=== PATIENT | female | born 1930 | race Caucasian/White ===

== ENCOUNTER 2016-10-29 12:46 | Emergency (ER) | payer MEDICARE, BC ==
--- NOTE | 2016-10-31 19:25 | ER ---
ADMIT: 10/29/2016 RM/LOC: ER [facility] MR#: [id number] [address] [address] [address] [place] [address] Emergency Room Report SEX: F AGE: 85 : 1930 DATE: 10/29/2016 ADDENDUM: CHIEF COMPLAINT: Right underarm pain. HISTORY OF PRESENT ILLNESS: This 85-year-old who had a lumpectomy from her right breast just a week ago. She really has had no pain. She was sent home with tramadol and said she only had to take it twice. Just this morning, she said she was having some chills and some right arm pain, just proximal. There is no rash. There is no erythema. There is no swelling. She is afebrile. I did check a CBC, this is normal with a white count of 5.6. I am sending her home with Keflex just more preventative, if there is an infection that I cannot see, having her followup with her primary care physician. Return to the ER if she develops any kind of fever. I did give her warning signs that this could be early shingles that we just cannot see it yet, so to watch for rash. CLINICAL IMPRESSION: Status post right breast lumpectomy with right arm pain. ERNA Barber / Aly Zapata MD / barbiel JOB #: [id number] CC: Aly Zapata MD, Attending Physician Dima Keller MD, Family Physician
[2017-01-13] MEDS ORDERED: SYNTHROID25 MCG PO (10:29)
[2017-01-13] MEDS ORDERED: POTASSIUM CHLO10 MEQ PO (10:29)
[2017-01-13] MEDS ORDERED: AMIODARONE HCL200 MG PO (10:29)
[2017-01-13] MEDS ORDERED: LASIX DPS80 MG PO (10:30)
[2017-01-13] MEDS ORDERED: VITAMIN D50000 UNIT PO (10:30)
[2017-01-13] MEDS ORDERED: PRILOSEC DPS20 MG PO (10:31)
[2017-01-13] MEDS ORDERED: XARELTO20 MG PO (10:31)
[2017-01-13] MEDS ORDERED: ASPIR 8181 MG PO (10:31)
[2017-01-13] MEDS ORDERED: CRESTOR10 MG PO (10:32)
[2017-01-13] MEDS ORDERED: DETROL LA DPS4 MG PO (10:32)
[2017-01-13] MEDS ORDERED: TESSALON PERLE100 M1 PO (10:32)
[2017-01-13] MEDS ORDERED: ZOFRAN4 MG PO (10:32)
[2017-01-13] MEDS ORDERED: LOPRESSOR DPS100 MG PO (10:32)
[2017-01-13] MEDS ORDERED: ULTRAM DPS50 MG PO (10:33)
[2017-01-13] MEDS ORDERED: NITROSTAT0.4 MG SL (10:33)
== END 2016-10-29 14:30 | disposition home or self-care (01) ==
LOC: ER 12:46
DX: G89.18 Other acute postprocedural pain (principal); M79.601 Pain in right arm; I10 Essential (primary) hypertension; E03.9 Hypothyroidism, unspecified; Z87.891 Personal history of nicotine dependence; Z91.040 Latex allergy status; Z79.82 Long term (current) use of aspirin; Z79.899 Other long term (current) drug therapy

== ENCOUNTER → 2016-12-14 | Outpatient (CLI) | payer MEDICARE, BC ==
[~2016-12-14] MED LIST: AMIODARONE HCL200 MG PO; ASPIR 8181 MG PO; CRESTOR10 MG PO; DETROL LA DPS4 MG PO; LASIX DPS80 MG PO; LOPRESSOR DPS100 MG PO; NITROSTAT0.4 MG SL; POTASSIUM CHLO10 MEQ PO; PRILOSEC DPS20 MG PO; SYNTHROID25 MCG PO; TESSALON PERLE100 M1 PO; ULTRAM DPS50 MG PO; VITAMIN D50000 UNIT PO; XARELTO20 MG PO; ZOFRAN4 MG PO
== END | disposition home or self-care (01) ==
LOC: RAD.S 10:11
DX: C50.411 Malignant neoplasm of upper-outer quadrant of right female breast (principal)

== ENCOUNTER 2017-01-10 22:29 | Observation (INO) | payer MEDICARE, BC ==
[~2017-01-10] VITALS: Ht 170.2 cm; Wt 75.0 kg
[2017-01-13] MEDS ORDERED: POTASSIUM CHLO10 MEQ PO (10:29)
[2017-01-13] MEDS ORDERED: SYNTHROID25 MCG PO (10:29)
[2017-01-13] MEDS ORDERED: AMIODARONE HCL200 MG PO (10:29)
[2017-01-13] MEDS ORDERED: LASIX DPS80 MG PO (10:30)
[2017-01-13] MEDS ORDERED: VITAMIN D50000 UNIT PO (10:30)
[2017-01-13] MEDS ORDERED: PRILOSEC DPS20 MG PO (10:31)
[2017-01-13] MEDS ORDERED: XARELTO20 MG PO (10:31)
[2017-01-13] MEDS ORDERED: ASPIR 8181 MG PO (10:31)
[2017-01-13] MEDS ORDERED: LOPRESSOR DPS100 MG PO (10:32)
[2017-01-13] MEDS ORDERED: TESSALON PERLE100 M1 PO (10:32)
[2017-01-13] MEDS ORDERED: CRESTOR10 MG PO (10:32)
[2017-01-13] MEDS ORDERED: DETROL LA DPS4 MG PO (10:32)
[2017-01-13] MEDS ORDERED: ZOFRAN4 MG PO (10:32)
[2017-01-13] MEDS ORDERED: NITROSTAT0.4 MG SL (10:33)
[2017-01-13] MEDS ORDERED: ULTRAM DPS50 MG PO (10:33)
--- NOTE | 2017-01-14 12:00 | HP ---
ADMIT: 01/11/2017 RM/LOC: 531 [facility] MR#: [id number] [facility]#: [id number] [address] [address] [address] [place] [address] History and Physical SEX: F AGE: 86 : 1930 DATE OF SERVICE: CHIEF COMPLAINT: Fall, pain. HISTORY OF PRESENT ILLNESS: The patient is a very pleasant, 86-year-old female, known to me from clinic, who last night in the middle of the night as she was heading to bed, going upstairs. She was carrying 3 large bags in 1 hand and then reached for the railing on her right hand, missed the railing and felt ultimately down on her back down 8-9 steps. Did not really strike her head. Fell with enough force that she shattered a glass table, she reports. Having severe pain in the ER, really uncontrolled, so admitted for this. The patient otherwise had been in her usual state of health without any new cough, cold, fevers, chills, nausea, vomiting, shortness of breath, or weakness. She had been out and about all weekend long with some dizziness. Usually orthostatic. She had been seen in the office about a month ago for unsteadiness. She states this is about the same, but really overall related to her fall this time. She had a recent CT scan which was essentially negative. Otherwise the patient currently reports a lot of back pain on her right side, history of troubles with codeine in the past with nausea and vomiting. No headaches at this time. PAST MEDICAL HISTORY: 1. GERD. 2. History of a duodenal ulcer. 3. Hypothyroidism. 4. Osteoporosis. 5. Vitamin D deficiency. 6. Coronary artery disease. 7. Hyperlipidemia. 8. Hypertension. 9. Atrial fibrillation, on chronic anticoagulation. 10.History of pacemaker for sick sinus syndrome. MEDICATIONS: She is on: 1. Amiodarone. 2. Aspirin. 3. Crestor. 4. Prolia. 5. Vitamin D. 6. Lasix. 7. Synthroid. 8. Metoprolol. 9. Omeprazole. 10.Zofran. 11.Potassium. 12.Evista. 13.Xarelto. 14.Detrol. Please see list for full details of dosages. ADMIT: 01/11/2017 RM/LOC: 531 [facility] MR#: [id number] [address] [address] [address] [place] [address] History and Physical SEX: F AGE: 86 : 1930 ALLERGIES: LASIX AND CODEINE. FAMILY HISTORY: Significant for breast cancer in mother and stroke in her father. Ovarian cancer in a sister. SOCIAL HISTORY: Lives at home with her . Former smoker years ago. PAST SURGICAL HISTORY: Appendectomy, tonsillectomy, adenoidectomy, ankle surgery, and breast lumpectomy with lymph node biopsies. REVIEW OF SYSTEMS: As per HPI. Otherwise, completely reviewed and negative. PHYSICAL EXAMINATION: VITAL SIGNS: Temperature 96.8, pulse 59, respiratory rate 14, blood pressure 146/69, and O2 saturation 93% on room air. GENERAL: She is alert and oriented x3. No acute distress. Extremely pleasant as always. HEENT: Normocephalic, atraumatic. Pupils equal, round, and reactive to light and accommodation. Extraocular muscles intact. Dry mucous membranes. NECK: No lymphadenopathy. Soft, supple. Trachea midline. LUNGS: Clear to auscultation bilaterally. No wheezes, rales, or rhonchi. HEART: Regular rate and rhythm. No murmurs, rubs, or gallops. ABDOMEN: Soft, nontender, nondistended. Bowel sounds present. EXTREMITIES: No cyanosis, clubbing, or edema. MUSCULOSKELETAL: 5/5 strength in all 4 extremities. NEUROLOGICAL: No focal deficits noted. Cranial nerves II through XII grossly intact. SKIN: She has a large ecchymosis in the right lower flank area, roughly 8 x 6 cm in size. Also one up in her right scapular area as well. Otherwise skin tear on her right forearm and left hand. LABORATORY AND X-RAY DATA: Pending. Reportedly imaging of her hip and chest, CT scan of her head are all reportedly normal. Final report not back yet. This is per report from the ER, the [facility] report, which I do not see on the chart currently. ASSESSMENT/PLAN: 1. Fall. ADMIT: 01/11/2017 RM/LOC: 531 [facility] MR#: [id number] [address] [address] [address] [place] [address] History and Physical SEX: F AGE: 86 : 1930 2. Dizziness. 3. Atrial fibrillation, on chronic anticoagulation. 4. Intractable pain. 5. Status post pacemaker. 6. Breast cancer history. At this point in time, we will try to get her on some oral pain medications, tramadol given her issues with codeine. See if we can get her tolerate that and get her pain under reasonable control. We will get her home. We will hold her Xarelto for a day or two. We will check some lab work, CBC, CMP, UA with micro given her unsteadiness recently. Await final reading of her imaging results. Check orthostatics. Likely get her home later today if all is well. She is agreeable to plan. Dima Keller MD/ roberto JOB #: [id number] CC: Dima Keller, Attending Physician Dima Keller, Family Physician
--- NOTE | 2017-01-18 09:35 | DS ---
ADMIT: 01/11/2017 RM/LOC: 531 [facility] MR#: [id number] [id number] [place], [place] [address] [address] [place] [address] Discharge Summary SEX: F AGE: 86 : 1930 ADMISSION DATE: 01/11/2017 DISCHARGE DATE: 01/12/2017 CONSULTATIONS: None. FINAL DIAGNOSES: 1. Fall with intractable pain. 2. Dizziness. 3. Atrial fibrillation on anticoagulation. 4. History of pacemaker. 5. Breast cancer history. REASON FOR ADMISSION: The patient is a very pleasant, 86-year-old female, who fell down stairs on her back at least nine steps. Had some bruising. Associated pain, severe. Admitted for further stabilization. HOSPITAL COURSE: The patient was admitted. Given pain medications. Had some difficulty finding a regimen that she would tolerate, ultimately had pain reasonably controlled with oral tramadol. She had some difficulty getting her pain controlled which kept her here for an extra day. Ultimately arrangements were made for her to go home with home health care, PT, nursing and possible bath aide. Still having troubles getting around due to the severity of her pain from her fall. DISCHARGE INSTRUCTIONS: She will discharge to home. See me back in the clinic over the next month or two as needed. Continue with therapy services. DISCHARGE MEDICATIONS: Please see discharge MAR which I reviewed. Dima Keller MD/ iris JOB #: [id number] CC: Dima Keller MD, Attending Physician Dima Keller MD, Family Physician
--- NOTE | 2017-02-14 15:32 | ER ---
ADMIT: 01/10/2017 RM/LOC: ER [facility] MR#: [id number] [address] [address] [address] [place] [address] Emergency Room Report SEX: F AGE: 86 : 1930 DATE: 01/10/2017 This is a partial trauma note. An 86-year-old female was carrying laundry up the stairs when she slipped and fell down two steps. She is on Xarelto. She does abrasion on the top of her head. She did not lose consciousness. She has not complained of headache. She does complain of posterior rib pain on the right and low back pain. She requested no narcotics, however, then relented to a small dose of fentanyl. PHYSICAL EXAMINATION: GENERAL: Revealed an 86-year-old lady in no acute distress. She is alert, pleasant. No focal neuro findings. There was an abrasion on top of her scalp requiring no sutures. There were multiple contusions and abrasions along her back, primarily on the left side of her back. There is tenderness to palpation over the iliac crest on the left side. There is also tenderness in the lower lumbar spine. A CT of the head was negative. Chest x-ray showed rib fracture on the left side. Pelvis x-ray was negative. Lumbar suspicious for a compression fracture and a great deal of arthritic changes. The patient with discharge diagnoses being contusions, abrasions, rib fracture, compression fracture. She has refused narcotic pain medicine on discharge. Instructed to follow up with her doctor yet this week. The patient will be given a prescription of Ultram and once again, she refuses any narcotic pain medicine. Rolan Lang MD/ roberto JOB #: [id number] CC: Gregor Phan MD, Attending Physician
== END 2017-01-12 12:00 | disposition home health service (06) ==
LOC: ER 22:29 → 5MS 01-11 00:15
PROVIDERS: ADMIT Internal Medicine
DX: R52 Pain, unspecified (principal); R42 Dizziness and giddiness; I48.91 Unspecified atrial fibrillation; Z95.0 Presence of cardiac pacemaker; Z85.3 Personal history of malignant neoplasm of breast; Z87.891 Personal history of nicotine dependence; Z90.49 Acquired absence of other specified parts of digestive tract; Z98.890 Other specified postprocedural states; Z88.0 Allergy status to penicillin; Z79.899 Other long term (current) drug therapy; Z79.82 Long term (current) use of aspirin; Z79.01 Long term (current) use of anticoagulants